=== PATIENT | female | born 1965 | race Caucasian/White ===

== ENCOUNTER 2019-01-09 08:14 | Emergency (ER) | payer BC, OTHER ==
--- NOTE | 2019-01-09 08:51 | EDM.PDOC ---
ED HPI GENERAL MEDICAL PROBLEM - General Chief Complaint: Cardiovascular Problem Stated Complaint: CHEST TIGHTNESS, THYROID ISSUES Time Seen by Provider: 01/09/19 08:30 Source of Information: Reports: Patient History Limitations: Reports: No Limitations - History of Present Illness INITIAL COMMENTS - FREE TEXT/NARRATIVE: Adrienne comes into [facility] ED with sxs of lt headiness, a rapid pulse in the low 100s, numbness and tingling of both UEs to the elbows, malaise, and L sided anterior neck pain. 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 Shortly after arrival, sxs seems to escalate, with some associated tightness in the chest, and she summoned coworkers to drive her to the ED. Upon arrival to the ED, she was observed to be partially "passed out" in the garage, but returned to baseline quickly. She is currently not reporting chest tightness, and sxs of R anterior neck pain and malaise seem to dominate. She has not taken her home meds (Prednisone and Propanolol) this am. Of interest is a PMH of thyroiditis diagnosed in [facility] during March 2018, thyroid bx (benign nodule L lobe), absence of thyroid enlargement, comorbid sxs of generalized achiness, and continued evaluation by a team including IM, ENDO, and IMMUNO. Her last appointment was 2 weeks ago. - Related Data Allergies Allergy/AdvReac Type Severity Reaction Status Date / Time No Known Allergies Allergy Verified 01/09/19 08:25 Home Meds: Home Meds Ascorbate Calcium [Vitamin C] 500 mg PO BID PRN 12/25/14 [History] Fluticasone Propionate [Flonase] 2 spray NS DAILY PRN 12/25/14 [History] Omeprazole 20 mg PO DAILY PRN 12/25/14 [History] Propranolol [Inderal] 20 mg PO BID 01/09/19 [History] predniSONE [Prednisone] 10 mg PO DAILY 01/09/19 [History] Past Medical History Endocrine/Metabolic History: Reports: Other (See Below) (thyroiditis) ED ROS GENERAL - Review of Systems Review Of Systems: See Below Constitutional: Reports: Malaise, Decreased Appetite Respiratory: Reports: No Symptoms Cardiovascular: Reports: Lightheadedness, Other (chest tightness) Endocrine: Reports: Other (malaise) GI/Abdominal: Reports: Decreased Appetite : Reports: No Symptoms Musculoskeletal: Reports: Neck Pain (L anterior pain), Joint Pain (multiple sites) Skin: Reports: Other (hands feel cool) Neurological: Reports: Dizziness, Numbness, Tingling Psychiatric: Reports: Anxiety Hematologic/Lymphatic: Reports: No Symptoms Immunologic: Reports: No Symptoms ED EXAM, GENERAL - Physical Exam Exam: See Below Exam Limited By: No Limitations General Appearance: Alert, WD/WN, Anxious, Mild Distress Eye Exam: Bilateral Eye: EOMI, Normal Inspection, PERRL Ears: Normal External Exam Nose: Normal Inspection Throat/Mouth: Normal Inspection, Normal Lips, Normal Teeth, Normal Gums, Normal Oropharynx, Normal Voice, No Airway Compromise Head: Normocephalic, Other (appears flushed) Neck: Normal Inspection, Supple, Full Range of Motion, Tender Lateral (Left) Respiratory/Chest: No Respiratory Distress, Lungs Clear, Normal Breath Sounds, No Accessory Muscle Use, Chest Non-Tender Cardiovascular: Normal Peripheral Pulses, No Edema, No Gallop, No JVD, No Murmur , No Rub, Tachycardia GI/Abdominal: Normal Bowel Sounds, Soft, Non-Tender, No Organomegaly, No Distention, No Mass (Female) Exam: Deferred Rectal (Female) Exam: Deferred Back Exam: Normal Inspection, Full Range of Motion Extremities: Normal Inspection, Normal Range of Motion Neurological: Alert, Oriented, CN II-XII Intact, Normal Cognition, No Motor/ Sensory Deficits Psychiatric: Normal Affect, Anxious Skin Exam: Warm, Dry, Intact, Normal Color, No Rash Lymphatic: No Adenopathy Course - Vital Signs Text/Narrative:: Following admission to [facility] ED, an IV was started in the LUE and 1L of NS was administered over the next 2 hrs pending results of laboratory assessment. A 12 lead ekg noted sinus tachycardia VR 108, which slowed to 95 bpm with oral Propanolol maintenance med. Other VS remained stable on monitor, with no ectopy or dysrhythmia. The CBC noted Hgb 15 gm, WBC 13,100, plts normal with L shift, CMP noted K 3.3 meq/l, CRP 4.3, Troponin I <0.017, TSH 1.20. The Free T4 and T3 are sendouts. Sxs seemed to improve during ED visit, and she was discharged home for the remainder of the day, and advised follow up with PCP in [place] regarding further management. A note for work today was provided. Last Recorded V/S: Last Vital Signs Temp 37.1 C 01/09/19 08:14 Pulse 113 H 01/09/19 08:14 Resp 18 01/09/19 08:14 BP 126/75 01/09/19 08:14 Pulse Ox 100 01/09/19 08:14 - Orders/Labs/Meds Orders: Active Orders 24 hr Category Date Time Status EKG Documentation Completion [RC] ASDIRECTED Care 01/09/19 09:15 Active THYROXINE (T4) FREE, DIRECT, S Urgent Lab 01/09/19 09:25 Received TRIIODOTHYRONINE,FREE,SERUM Urgent Lab 01/09/19 09:25 Received URINALYSIS W/MICROSCOPIC [UA W/MICROSCOPIC] [URIN] Stat Lab 01/09/19 10:25 Received Sodium Chloride 0.9% [Normal Saline] 1,000 ml Med 01/09/19 09:15 Active IV ASDIRECTED Sodium Chloride 0.9% [Saline Flush] Med 01/09/19 09:13 Active 10 ml FLUSH ASDIRECTED PRN Peripheral IV Insertion Adult [OM.PC] Routine Oth 01/09/19 09:13 Ordered EKG 12 Lead [EK] Routine Ther 01/09/19 09:13 Ordered Medication Orders Sodium Chloride (Normal Saline) 1,000 mls @ 500 mls/hr IV ASDIRECTED SUZIE Last Infusion: 01/09/19 10:44 Dose: 999 mls/hr Admin: 01/09/19 09:15 Dose: 500 mls/hr Sodium Chloride (Saline Flush) 10 ml FLUSH ASDIRECTED PRN PRN Reason: Keep Vein Open Last Admin: 01/09/19 09:05 Dose: 10 ml Labs: Laboratory Tests 01/09/19 01/09/19 01/09/19 Range/Units 09:25 09:25 09:25 WBC 13.1 H (4.5-12.0) X10-3/uL RBC 4.90 (3.23-5.20) x10(6)uL Hgb 15.0 (11.5-15.5) g/dL Hct 42.9 (30.0-51.3) % MCV 87.6 (80-96) fL MCH 30.6 (27.7-33.6) pg MCHC 34.9 (32.2-35.4) g/dL RDW 12.2 (11.5-15.5) % Plt Count 292 (125-369) X10(3)uL MPV 8.1 (7.4-10.4) fL Add Manual Diff Yes Neutrophils % (Manual) 90 H (46-82) % Lymphocytes % (Manual) 8 L (13-37) % Monocytes % (Manual) 2 L (4-12) % ESR 34 H (0-20) mm/hr Sodium 140 (135-145) mmol/L Potassium 3.3 L (3.5-5.3) mmol/L Chloride 101 (100-110) mmol/L Carbon Dioxide 29 (21-32) mmol/L BUN 19 H (7-18) mg/dL Creatinine 0.9 (0.55-1.02) mg/dL Est Cr Clr Drug Dosing 67.67 mL/min Estimated GFR (MDRD) > 60 (>60) BUN/Creatinine Ratio 21.1 H (9-20) Glucose 114 (80-116) mg/dL Calcium 9.1 (8.6-10.2) mg/dL Total Bilirubin 1.2 (0.1-1.3) mg/dL AST 16 (5-25) IU/L ALT 20 (12-36) U/L Alkaline Phosphatase 83 (56-112) IU/L Troponin I (<0.017-0.056) ng/mL C-Reactive Protein 4.3 H* (0.5-0.9) mg/dL Total Protein 7.5 (6.0-8.0) g/dL Albumin 3.6 (3.5-5.2) g/dL Globulin 3.9 g/dL Albumin/Globulin Ratio 0.9 TSH, Ultra Sensitive 1.20 (0.36-3.74) IU/mL 01/09/19 Range/Units 09:25 WBC (4.5-12.0) X10-3/uL RBC (3.23-5.20) x10(6)uL Hgb (11.5-15.5) g/dL Hct (30.0-51.3) % MCV (80-96) fL MCH (27.7-33.6) pg MCHC (32.2-35.4) g/dL RDW (11.5-15.5) % Plt Count (125-369) X10(3)uL MPV (7.4-10.4) fL Add Manual Diff Neutrophils % (Manual) (46-82) % Lymphocytes % (Manual) (13-37) % Monocytes % (Manual) (4-12) % ESR (0-20) mm/hr Sodium (135-145) mmol/L Potassium (3.5-5.3) mmol/L Chloride (100-110) mmol/L Carbon Dioxide (21-32) mmol/L BUN (7-18) mg/dL Creatinine (0.55-1.02) mg/dL Est Cr Clr Drug Dosing mL/min Estimated GFR (MDRD) (>60) BUN/Creatinine Ratio (9-20) Glucose (80-116) mg/dL Calcium (8.6-10.2) mg/dL Total Bilirubin (0.1-1.3) mg/dL AST (5-25) IU/L ALT (12-36) U/L Alkaline Phosphatase (56-112) IU/L Troponin I < 0.017 L (<0.017-0.056) ng/mL C-Reactive Protein (0.5-0.9) mg/dL Total Protein (6.0-8.0) g/dL Albumin (3.5-5.2) g/dL Globulin g/dL Albumin/Globulin Ratio TSH, Ultra Sensitive (0.36-3.74) IU/mL Meds: Medications Generic Name Dose Route Start Last Admin Trade Name Freq PRN Reason Stop Dose Admin Sodium Chloride 1,000 mls @ 500 mls/hr 01/09/19 09:15 01/09/19 10:44 Normal Saline IV 999 mls/hr ASDIRECTED SUZIE Infusion Sodium Chloride 10 ml 01/09/19 09:13 01/09/19 09:05 Saline Flush FLUSH 10 ml ASDIRECTED PRN Administration Keep Vein Open Departure - Departure Time of Disposition: 10:56 Disposition: Home, Self-Care 01 Condition: Fair Clinical Impression: Tachycardia, Other malaise Instructions: Weakness, [id number] Referrals: Louise Brown NP [Primary Care Provider] - Forms: ED Department Discharge - Problem List & Annotations (1) Other malaise SNOMED Code(s): 656040257 Code(s): R53.81 - OTHER MALAISE Status: Acute Current Visit: Yes Annotation/Comment:: Follow up with IM at [facility]. (2) Tachycardia SNOMED Code(s): 8322238 Code(s): R00.0 - TACHYCARDIA, UNSPECIFIED Status: Acute Current Visit: Yes Annotation/Comment:: Follow up with [facility], and continue maintenance meds. - Problem List Review Problem List Initiated/Reviewed/Updated: Yes - My Orders Last 24 Hours: My Active Orders 01/09/19 09:13 Sodium Chloride 0.9% [Saline Flush] 10 ml FLUSH ASDIRECTED PRN Peripheral IV Insertion Adult [OM.PC] Routine EKG 12 Lead [EK] Routine 01/09/19 09:15 EKG Documentation Completion [RC] ASDIRECTED Sodium Chloride 0.9% [Normal Saline] 1,000 ml IV ASDIRECTED 01/09/19 09:25 THYROXINE (T4) FREE, DIRECT, S Urgent TRIIODOTHYRONINE,FREE,SERUM Urgent 01/09/19 10:25 URINALYSIS W/MICROSCOPIC [UA W/MICROSCOPIC] [URIN] Stat - Assessment/Plan Last 24 Hours: My Active Orders 01/09/19 09:13 Sodium Chloride 0.9% [Saline Flush] 10 ml FLUSH ASDIRECTED PRN Peripheral IV Insertion Adult [OM.PC] Routine EKG 12 Lead [EK] Routine 01/09/19 09:15 EKG Documentation Completion [RC] ASDIRECTED Sodium Chloride 0.9% [Normal Saline] 1,000 ml IV ASDIRECTED 01/09/19 09:25 THYROXINE (T4) FREE, DIRECT, S Urgent TRIIODOTHYRONINE,FREE,SERUM Urgent 01/09/19 10:25 URINALYSIS W/MICROSCOPIC [UA W/MICROSCOPIC] [URIN] Stat Plan: Follow up with PCP.
[2019-01-09] MEDS ORDERED: Sodium Chloride 0.9% 10 ML Syringe FLUSH PRN (09:13)
[2019-01-09] MEDS ORDERED: Sodium Chloride 0.9% 1,000 ML IV SCH (09:15)
[2019-01-09 11:41] VITALS: BP 132/70
== END 2019-01-09 11:26 | disposition home or self-care (01) ==
LOC: FB.ED 08:14
DX: R00.0 Tachycardia, unspecified (principal); R53.81 Other malaise; Z79.899 Other long term (current) drug therapy
CPT/HCPCS: 36415; 80053; 81001; 84439; 84443; 84481; 84484; 85025; 85651; 86140; 93005; 96365; 96366; 99285; J7030